=== PATIENT | male | born 1980 | race American Indian/Alaskan Native ===

== ENCOUNTER 2016-09-13 16:04 | Emergency (ER) | payer SELFPAY ==
[2016-09-13 16:55] VITALS: BP 147/96
[2016-09-13 17:16] LABS: Basophils % (Auto) 1.3 % (0.0-1.8); Eosinophils % (Auto) 1.7 % (0.0-4.3); Hematocrit 44.6 % (35.5-45.6); Hemoglobin 14.8 gm/dl (11.8-15.2); Mean Corpuscular HGB Conc 33 % (32-34); Mean Corpuscular Hemoglobin 27 pg (28-32); Mean Corpuscular Volume 82 fl (84-94); Platelet Count 257 K/mm3 (140-440); Red Blood Count 5.43 M/mm3 (3.65-5.03); Red Cell Distribution Width 14.5 % (13.2-15.2); White Blood Count 7.6 K/mm3 (4.5-11.0)
[2016-09-13 17:34] LABS: Anion Gap 16 mmol/L; Blood Urea Nitrogen 15 mg/dL (9-20); Calcium 9.3 mg/dL (8.4-10.2); Carbon Dioxide 28 mmol/L (22-30); Chloride 106.1 mmol/L (98-107); Glucose 104 mg/dL (75-100); Potassium 4.5 mmol/L (3.6-5.0); Sodium 146 mmol/L (137-145)
== END 2016-09-13 17:02 | disposition left against medical advice (07) ==
LOC: ED 16:04
DX: Z00.8 Encounter for other general examination (principal); Z53.21 Procedure and treatment not carried out due to patient leaving prior to being seen by health care provider
CPT/HCPCS: 36415; 80048; 82962; 85025; G0480; 80320